=== PATIENT | female | born 1980 | race Caucasian/White ===

== ENCOUNTER 2020-11-13 09:33 | Inpatient (IN) | payer OTHER ==
[~2020-11-13 09:33] MED LIST: ePHEDrine Sulfate 50 MG/10 ML VIAL ONE
[2020-11-13] MEDS ORDERED: Penicillin G Potassium 5 MILL.UNITS VIAL ONE (09:50)
[2020-11-13] MEDS ORDERED: Lidocaine 1% (PF) 30 ML VIAL SC PRN (10:02)
[2020-11-13] MEDS ORDERED: Ibuprofen 800 MG TAB PO PRN (10:02)
[2020-11-13] MEDS ORDERED: Acetaminophen 500 MG TAB PO PRN (10:02)
[2020-11-13] MEDS ORDERED: HYDROcodone/Acetaminophen 5/325 mg Tablet PO PRN ×2 (10:02→18:53)
[2020-11-13] MEDS ORDERED: Butorphanol Tartrate 1 MG/ML VIAL SLOW IVP PRN (10:02)
[2020-11-13] MEDS ORDERED: Ondansetron PF 4 MG/2 ML Vial IVP PRN ×3 (10:02→18:53)
[2020-11-13] MEDS ORDERED: Promethazine HCl 25 MG/ML VIAL IM PRN ×3 (10:02→18:53)
[2020-11-13] MEDS ORDERED: hydrALAZINE 20 MG/ML VIAL SLOW IVP PRN ×2 (10:02→18:53)
[2020-11-13 10:05] VITALS: BMI 35.6
[2020-11-13] MEDS ORDERED: Penicillin G Potassium 5 MILL.UNITS in Sodium Chloride 0.9% 100 ML IVPB SCH (10:15)
[2020-11-13] MEDS ORDERED: Lactated Ringer's 1,000 ML IV SCH (10:15)
[2020-11-13] MEDS ORDERED: NS w/ Oxytocin 30 units 500 ML IVPB PRN (10:21)
[2020-11-13] MEDS ORDERED: Fentanyl 4 mcg/Bup 0.1% Cadd 100 ML ONE ×2 (10:30→17:30)
[2020-11-13 10:42] LABS: Mean Corpuscular HGB CONC 32.6 g/dL (32.0-36.0); Mean Corpuscular Hemoglobin 29.3 pg (27.0-33.0); Mean Platelet Volume 12.3 fl (7.4-10.4); Platelet Count 144 10x3/uL (150-450); RBC Distribution Width 13.1 % (11.5-14.5); Red Blood Cell (RBC) Count 3.41 10x6/uL (3.90-5.03); White Blood Cell (WBC) Count 4.6 10x3/uL (3.5-10.5)
[2020-11-13 10:58] LABS: Hep B Surf Ag Non-Reactive S/CO (NonReactive)
[2020-11-13 10:59] LABS: Syphilis Antibody Nonreactive (Nonreactive); Syphilis Antibody Index 0.02 S/CO (<1.00 Non-Reactive)
[2020-11-13 11:16] LABS: HBSAg Index 0.11 S/CO (0-0.99)
[2020-11-13] MEDS ORDERED: Lactated Ringer's 500 ML IV PRN (11:29)
[2020-11-13] MEDS ORDERED: diphenhydrAMINE 50 MG/ML VIAL IVP PRN (11:29)
[2020-11-13] MEDS ORDERED: Naloxone HCl 0.4 mg/ml Vial IVP PRN ×2 (11:29)
[2020-11-13] MEDS ORDERED: Acetaminophen 325 MG TAB PO PRN (11:29)
[2020-11-13] MEDS ORDERED: ePHEDrine 50 MG/ML VIAL SLOW IVP PRN (11:29)
[2020-11-13] MEDS ORDERED: Eucerin (Mineral Oil/Petrolatum,White) 30 gm Jar TOP PRN (11:29)
[2020-11-13] MEDS ORDERED: Communication Order-Pharmacy FS SCH (11:30)
[2020-11-13] MEDS ORDERED: Fentanyl 4 mcg/Bupivacaine 0.1% Cassette 100 ML EPIDURAL SCH (11:30)
[2020-11-13] MEDS ORDERED: Penicillin G 2.5 MILL.units 2.5 MILL.UNITS in Premix Bag 1 BAG IVPB SCH (14:00)
[2020-11-13] MEDS ORDERED: Adacel (T-DAP) 0.5 ML SYRINGE IM ONE (18:53)
[2020-11-13] MEDS ORDERED: Bisacodyl 10 MG SUPP PR PRN (18:53)
[2020-11-13] MEDS ORDERED: Milk Of Magnesia 30 ML UDCUP PO PRN (18:53)
[2020-11-13] MEDS ORDERED: Lanolin Ointment 7 GM TUBE TOP PRN (18:53)
[2020-11-13] MEDS ORDERED: Benzocaine-Menthol 82.5 ML CAN TOP PRN (18:53)
[2020-11-13] MEDS ORDERED: diphenhydrAMINE 25 MG CAP PO PRN (18:53)
[2020-11-13] MEDS ORDERED: Preparation H Ointment 28 GM TUBE PR PRN (18:53)
[2020-11-13] MEDS ORDERED: NS w/ Oxytocin 30 units 500 ML IV SCH (19:15)
[2020-11-13] MEDS: Docusate Calcium (SURFAK) 240 MG CAP PO SCH (20:28)
[2020-11-13] MEDS: Ibuprofen 800 MG TAB PO SCH (20:28)
[2020-11-13] MEDS: HYDROcodone/Acetaminophen 5/325 mg Tablet PO PRN (22:25)
[2020-11-14] MEDS: HYDROcodone/Acetaminophen 5/325 mg Tablet PO PRN ×5 (02:26→21:03)
[2020-11-14] MEDS: Ibuprofen 800 MG TAB PO SCH ×3 (05:06→21:41)
[2020-11-14] MEDS: Ferrous Sulfate 325 MG TAB PO SCH ×2 (08:43→16:47)
[2020-11-14] MEDS: Docusate Calcium (SURFAK) 240 MG CAP PO SCH ×2 (09:31→21:41)
[2020-11-14] MEDS: Prenatal Vitamin 1 TAB PO SCH (09:31)
[2020-11-15] MEDS: HYDROcodone/Acetaminophen 5/325 mg Tablet PO PRN (01:16)
[2020-11-15] MEDS: Ibuprofen 800 MG TAB PO SCH ×2 (05:33→14:47)
[2020-11-15] MEDS: Ferrous Sulfate 325 MG TAB PO SCH (09:15)
[2020-11-15] MEDS: Docusate Calcium (SURFAK) 240 MG CAP PO SCH (09:23)
[2020-11-15] MEDS: Prenatal Vitamin 1 TAB PO SCH (09:23)
[2020-11-15 09:58] VITALS: BP 118/63; TEMP 98.5
== END 2020-11-15 15:00 | disposition home or self-care (01) | DRG 807 ==
LOC: CSHLD/OP 09:33 → CSHLD 18:39 → CSHPP 19:54
PROVIDERS: ADMIT Student in an Organized Health Care Education/Training Program; ATTEND Student in an Organized Health Care Education/Training Program
PROC: 10E0XZZ Delivery of Products of Conception, External Approach (ICD-10-PCS; principal; 2020-11-13)
PROC: 4A0HXCZ Measurement of Products of Conception, Cardiac Rate, External Approach (ICD-10-PCS; 2020-11-13)
DX: O99.824 Streptococcus B carrier state complicating childbirth (principal); Z37.0 Single live birth; Z3A.38 38 weeks gestation of pregnancy; O69.2XX0 Labor and delivery complicated by other cord entanglement, with compression, not applicable or unspecified
CPT/HCPCS: 36415; 51702; 85027; 86780; 86850; 86900; 86901; 87340; J2540; J2590

== ENCOUNTER 2020-11-19 06:50 | Inpatient (IN) | payer OTHER ==
[2020-11-19] MEDS ORDERED: Ondansetron PF 4 MG/2 ML Vial IVP PRN (06:54)
[2020-11-19] MEDS ORDERED: hydrALAZINE 20 MG/ML VIAL SLOW IVP PRN (06:54)
[2020-11-19] MEDS ORDERED: Promethazine HCl 25 MG/ML VIAL IM PRN (06:54)
[2020-11-19] MEDS ORDERED: Calcium Gluconate 4.6 MEQ in Sodium Chloride 0.9% 100 ML IVPB PRN (06:54)
[2020-11-19] MEDS ORDERED: Magnesium Sulfate 20 gm/500 ml 20 GM/500 ML BAG ONE (06:59)
[2020-11-19] MEDS ORDERED: Magnesium Sulfate 20 GM/WATER 500 ML BAG IVPB SCH (07:00)
[2020-11-19] MEDS ORDERED: Magnesium Sulfate 20 gm/500 ml 20 GM/500 ML BAG IVPB SCH (07:00)
[2020-11-19] MEDS ORDERED: NIFEdipine XL 30 MG TAB PO SCH ×2 (07:30→17:45)
[2020-11-19] MEDS: Lactated Ringer's 1,000 ML IV SCH ×2 (08:00→22:22)
[2020-11-19] MEDS ORDERED: Ibuprofen 800 MG TAB PO PRN (19:13)
[2020-11-19 22:11] VITALS: BMI 34.6
[2020-11-20] MEDS: Lactated Ringer's 1,000 ML IV SCH (02:43)
[2020-11-20] MEDS ORDERED: Carboprost 250 MCG/ML AMP ONE (03:20)
[2020-11-20 08:00] VITALS: BP 122/65; TEMP 98.6
[2020-11-20] MEDS ORDERED: NIFEdipine XL 30 MG TAB PO SCH (10:00)
[2020-11-21] MEDS ORDERED: NIFEdipine XL 30 MG TAB PO SCH ×2 (09:00→09:22)
== END 2020-11-20 10:25 | disposition home or self-care (01) | DRG 776 ==
LOC: CSHLD 06:50 → CSHPED 19:37
PROVIDERS: ADMIT Obstetrics & Gynecology; ATTEND Obstetrics & Gynecology
DX: O14.95 Unspecified pre-eclampsia, complicating the puerperium (principal); O99.345 Other mental disorders complicating the puerperium; F41.9 Anxiety disorder, unspecified
CPT/HCPCS: 84550; J3475

== ENCOUNTER 2022-12-17 05:00 | Observation (INO) | payer OTHER ==
[2022-12-17] MEDS ORDERED: Carboprost 250 MCG/ML AMP IM PRN (08:06)
[2022-12-17] MEDS ORDERED: hydrALAZINE 20 MG/ML VIAL SLOW IVP PRN (08:06)
[2022-12-17] MEDS ORDERED: Ibuprofen 800 MG TAB PO PRN (08:06)
[2022-12-17] MEDS ORDERED: Promethazine HCl 25 MG/ML VIAL IM PRN (08:06)
[2022-12-17] MEDS ORDERED: HYDROcodone/Acetaminophen 5/325 mg Tablet PO PRN (08:06)
[2022-12-17] MEDS ORDERED: Methylergonovine 0.2 MG/ML VIAL IM PRN (08:06)
[2022-12-17] MEDS ORDERED: Lidocaine 1% (PF) 30 ML VIAL SC PRN (08:06)
[2022-12-17] MEDS ORDERED: Tranexamic Acid 1,000 MG/10 ML VIAL IVP PRN (08:06)
[2022-12-17] MEDS ORDERED: Misoprostol 200 MCG TAB PR PRN (08:06)
[2022-12-17] MEDS ORDERED: Ondansetron PF 4 MG/2 ML Vial IVP PRN (08:06)
[2022-12-17] MEDS ORDERED: Acetaminophen 500 MG TAB PO PRN (08:06)
[2022-12-17] MEDS ORDERED: fentaNYL 50 mcg/mL 1 mL Vial SLOW IVP PRN (08:12)
[2022-12-17] MEDS ORDERED: Misoprostol 100 MCG TAB VAG SCH (08:15)
[2022-12-17] MEDS ORDERED: NS w/ Oxytocin 30 units 500 ML IV SCH (08:15)
[2022-12-17] MEDS: Lactated Ringer's 1,000 ML IV SCH ×3 (08:38→16:16)
[2022-12-17] MEDS: CEFAZOLIN 1 GM in Sodium Chloride 0.9% 100 ML IVPB SCH ×2 (09:17→17:14)
[2022-12-17] MEDS: Misoprostol 100 MCG TAB VAG SCH ×2 (09:55→10:00)
[2022-12-17] MEDS ORDERED: Misoprostol 200 MCG TAB ONE (10:02)
[2022-12-17 10:39] LABS: Syphilis Antibody Nonreactive (Nonreactive); Syphilis Antibody Index 0.04 S/CO (<1.00 Non-Reactive)
[2022-12-17 10:45] LABS: Hemoglobin 12.7 g/dL (12.0-15.5); Mean Corpuscular HGB CONC 33.9 g/dL (32.0-36.0); Mean Corpuscular Hemoglobin 30.8 pg (27.0-33.0); Platelet Count 210 10x3/uL (150-450); RBC Distribution Width 12.9 % (11.5-14.5); Red Blood Cell (RBC) Count 4.12 10x6/uL (3.90-5.03); White Blood Cell (WBC) Count 6.8 10x3/uL (3.5-10.5)
[2022-12-17] MEDS ORDERED: Fentanyl 2 mcg/Bup 0.1% Cadd 100 ML ONE (10:45)
[2022-12-17] MEDS: Misoprostol 200 MCG TAB VAG SCH ×2 (14:21→16:13)
== END 2022-12-17 21:35 | disposition home or self-care (01) ==
LOC: INTOOBSV 05:31 → CSHLD 05:31
PROVIDERS: ADMIT Student in an Organized Health Care Education/Training Program; ATTEND Student in an Organized Health Care Education/Training Program
DX: O36.4XX0 Maternal care for intrauterine death, not applicable or unspecified (principal); O23.42 Unspecified infection of urinary tract in pregnancy, second trimester; N39.0 Urinary tract infection, site not specified; Z79.899 Other long term (current) drug therapy; Z88.1 Allergy status to other antibiotic agents; Z88.2 Allergy status to sulfonamides; Z79.82 Long term (current) use of aspirin; Z3A.18 18 weeks gestation of pregnancy; Z37.1 Single stillbirth
CPT/HCPCS: 85027; 86780; 86850; 86900; 86901; 87077; 87086; 87186; 88305; 96374; 96376; G0378; J0690; J3490; J7120

== ENCOUNTER 2023-07-11 05:06 | Observation (INO) | payer OTHER ==
[2023-07-11 05:40] VITALS: BMI 38.2
[2023-07-11] MEDS ORDERED: Diphenoxylate HCl/Atropine Tablet PO PRN (08:06)
[2023-07-11] MEDS ORDERED: Ondansetron PF 4 MG/2 ML Vial IVP PRN (08:06)
[2023-07-11] MEDS ORDERED: Acetaminophen 500 MG TAB PO PRN (08:06)
[2023-07-11] MEDS ORDERED: Lidocaine 1% (PF) 30 ML VIAL SC PRN (08:06)
[2023-07-11] MEDS ORDERED: hydrALAZINE 20 MG/ML VIAL SLOW IVP PRN (08:06)
[2023-07-11] MEDS ORDERED: Tranexamic Acid 1,000 MG/10 ML VIAL IVP PRN (08:06)
[2023-07-11] MEDS ORDERED: HYDROcodone/Acetaminophen 5/325 mg Tablet PO PRN (08:06)
[2023-07-11] MEDS ORDERED: Promethazine HCl 25 MG/ML VIAL IM PRN (08:06)
[2023-07-11] MEDS ORDERED: Misoprostol 200 MCG TAB ONE ×2 (08:12→13:31)
[2023-07-11] MEDS ORDERED: HYDROcodone/Acetaminophen 5/325 mg Tablet PO SCH (08:15)
[2023-07-11] MEDS ORDERED: Misoprostol 100 MCG TAB VAG SCH ×2 (08:15→09:00)
[2023-07-11] MEDS ORDERED: Lactated Ringer's 1,000 ML IV SCH (08:15)
[2023-07-11] MEDS ORDERED: Oxytocin 30 units/NS 500 ML 500 ML IV SCH (08:15)
[2023-07-11 08:25] LABS: Hemoglobin 13.2 g/dL (12.0-15.5); Mean Corpuscular HGB CONC 33.8 g/dL (32.0-36.0); Mean Corpuscular Hemoglobin 30.6 pg (27.0-33.0); Mean Corpuscular Volume 90.5 fl (81.6-98.3); Platelet Count 212 10x3/uL (150-450); RBC Distribution Width 12.7 % (11.5-14.5); Red Blood Cell (RBC) Count 4.31 10x6/uL (3.90-5.03); White Blood Cell (WBC) Count 6.2 10x3/uL (3.5-10.5)
[2023-07-11] MEDS: Ibuprofen 800 MG TAB PO PRN ×2 (08:26→15:07)
[2023-07-11] MEDS: Misoprostol 200 MCG TAB PR PRN ×2 (08:27→13:32)
[2023-07-11] MEDS: fentaNYL 50 mcg/mL 1 mL Vial SLOW IVP PRN ×2 (11:11→13:38)
[2023-07-11] MEDS: Carboprost 250 MCG/ML AMP IM PRN ×2 (12:32→12:52)
== END 2023-07-11 17:00 | disposition home or self-care (01) ==
LOC: INTOOBSV 05:06 → CSHLD 05:06
PROVIDERS: ADMIT Student in an Organized Health Care Education/Training Program; ATTEND Student in an Organized Health Care Education/Training Program
DX: O36.4XX0 Maternal care for intrauterine death, not applicable or unspecified (principal); O73.1 Retained portions of placenta and membranes, without hemorrhage; Z79.899 Other long term (current) drug therapy; Z79.82 Long term (current) use of aspirin; Z88.1 Allergy status to other antibiotic agents
CPT/HCPCS: 85027; 86850; 86900; 86901; 88300; 88305; 96372; 96374; 96376; G0378; J3010; J3490